=== PATIENT | male | born 1975 | race Asian ===

== ENCOUNTER 2021-05-09 11:34 | Inpatient (IN) ==
[2021-05-09 12:07] LABS: Basophils # (auto) 0.03 K/uL (0-0.2); Basophils % (auto) 0.2 %; Eosinophils # (auto) 0.01 K/uL (0-0.5); Eosinophils % (auto) 0.1 %; Hematocrit (blood only) 46.6 % (42-52); Hemoglobin 15.9 g/dL (14.0-18.0); Immature Granulocytes # (auto) 0.04 K/uL (0.00-0.02); Immature Granulocytes % (auto) 0.3 %; Lymphocytes # (auto) 1.37 K/uL (1.2-3.4); Lymphocytes % (auto) 9.4 %; Mean Corpuscular Hemoglobin 30.8 pg (25-34); Mean Corpuscular Hgb Conc 34.1 g/dL (32-36); Mean Corpuscular Volume 90.1 fL (80-100); Mean Platelet Volume 8.4 fL (7.4-10.4); Monocytes # (auto) 1.17 K/uL (0.11-0.59); Monocytes % (auto) 8.1 %; Neutrophils % (auto) 81.9 %; Platelet Count 476 K/uL (130-400); RDW Coefficient of Variation 13.2 % (11.5-14.5); RDW Standard Deviation 43.2 fL (36.4-46.3); Red Blood Count 5.17 M/uL (4.7-6.1); White Blood Count 14.52 K/uL (4.8-10.8)
[2021-05-09 12:27] LABS: Albumin Level 3.7 gm/dl (3.4-5.0); BUN Creatinine Ratio 18.5 (10-20); Calcium 10.2 mg/dl (8.5-10.1); Est GFR (African American) 120.5 ml/min; Potassium 3.3 mmol/L (3.5-5.1)
[2021-05-09 12:29] LABS: Albumin Globulin Ratio 0.6 (0.9-2); Bilirubin,Total 0.8 mg/dl (0.2-1); Globulin 5.9 gm/dl (2.5-4.0); Total Protein 9.6 gm/dl (6.4-8.2)
[2021-05-09] MEDS ORDERED: OPTIRAY 320 100ml IV ONE (13:40)
--- NOTE | 2021-05-09 13:50 | CT Scan Report ---
CT soft tissue neck w con CLINICAL HISTORY: Left-sided facial pain, jaw pain, dental pain . Recent extraction COMPARISON STUDY: No previous studies for comparison. CT DOSE: 268.32 mGy.cm TECHNIQUE: Standard CT of the Neck was performed with IV contrast. A dose lowering technique was ut ilized adhering to the principles of ALARA. Contrast Volume: Optiray 320, 95 ml FINDINGS: The patient is status post extraction of the posterior molar on the left. Lucency is seen w ithin the mandible at this site. Additionally, there is soft tissue swelling of the adjacent left beth e of the face and submandibular region. There is evidence for abnormal fluid collection in the subman dibular space with enhancing wall measuring 17 x 17 mm. These findings are characteristic of a small submanubrial abscess. Adjacent cellulitis is also present of the left-sided face. Additionally, the soft tissue swelling extends medially to the mandible with soft tissue swelling and debris seen within the vallecula and piriform sinus on the left. Follow-up CT following resolution o f the inflammatory process is recommended to completely exclude any other process at this site. Salivary glands: Parotid and submandibular salivary glands are within normal limits. The thyroid gland is also within normal limits. Lymph nodes: There are no pathologically enlarged lymph nodes. There is no evidence for soft tissue mass within the neck bilaterally. Airway: The cervical airway is widely patent. The epiglottis and aryepiglottic folds are normal bila terally. The vocal cords are symmetric bilaterally. Vascular structures: No gross vascular abnormalities are seen. Paranasal sinuses:The imaged paranasal sinuses are clear. Osseous structures: No acute osseous abnormalities are identified. IMPRESSION: 1. Lucency within the mandible on the left at the site of recent extraction with no cortical destruct ion seen. 2. However, there is a submandibular abscess present along with adjacent cellulitis of the left side of the face. 3. Additionally, soft tissue swelling extends medial with swelling and debris seen within the vallecu la and piriform sinus on the left. Follow-up is recommended as described. ACT 112: Positive. There are findings on this exam that require communication between the performing entity and the patient following Patient Test Result Information Act ([place] Act 112) guidelines. Electronically signed by: Gabe Spencer M.D. 05/09/2021 1:49 PM
[2021-05-09] MEDS ORDERED: dexAMETHasone**PF** 10 MG/ML VIAL IV ONE (14:10)
[2021-05-09] MEDS ORDERED: AMPICILLIN/SULBACTAM SOD 3,000 MG in 0.9 % SODIUM CHLORIDE 100 ML IV STA (14:10)
--- NOTE | 2021-05-09 14:30 | Emergency Department Note ---
History of Present Illness General Chief complaint: Facial Injury/Pain Stated complaint: INFECTION IN JAW,EXTREME PAIN FOR 1 MONTH Time Seen by Provider: 05/09/21 13:56 History of Present Illness Maximum Pain Intensity: 10 This 46-year-old male patient presents to the emergency department today via private vehicle at the recommendation of his strand forming machine operator for evaluation of left sided facial swelling, pain, and chills. Patient has been experiencing left- sided facial pain and swelling for about a month. 1 month ago, he was seen by his dentist and had left lower molar extraction and right upper molar extraction. The patient states since that time, he has been experiencing increased pain and swelling in the area. After the extraction, he had a root canal of the left lower molar due to the pain. He states this did not help and he was seen several times. He was finally referred to an strand forming machine operator who removed the filling which was placed. The patient states he was on clindamycin and dexamethasone, but despite these medications was not experiencing improvement. He was seen by his strand forming machine operator and referred to an oral surgeon, but has not been able to get an appointment. The patient states the pain and swelling are severe and he is having difficulty opening his mouth. He does report some swelling into the floor of his mouth difficulty keeping down food and fluids due to his symptoms. The patient reports chills. No documented fever. He is not currently on any medications. He rates his pain 10/10 and describes it as sharp and throbbing Allergies Allergy/AdvReac Type Severity Reaction Status Date / Time No Known Allergies Allergy Unverified 05/09/21 11:39 Past Med/Surg History Medical History No pertinent past medical history Social History Smoking Status: Former smoker Preferred Language: Kuwaiti Feels Safe at Home: Yes Review of Systems A total of 10 systems reviewed and were otherwise negative Physical Exam Vital Signs Vital Signs - 24 hr 05/09/21 11:39 05/09/21 15:42 05/09/21 17:18 Temperature 36.8 C Temperature Source Temporal Artery Scan Pulse Rate 115 H Pulse Rate [Right Finger] 108 H 92 H Pulse Rhythm Regular Pulse Strength Normal Respiratory Rate 18 16 16 Respiratory Effort / Characteristics Non-Labored Spontaneous Respiratory Depth Normal Respiratory Pattern Regular Blood Pressure 141/96 H Blood Pressure [Right Arm] 131/89 158/91 H Blood Pressure Mean 111 Blood Pressure Mean [Right Arm] 103 113 Blood Pressure Position Sitting Pulse Oximetry 97 98 96 Oxygen Delivery Method Room Air Room Air Room Air Sepsis Recent Fever Within 48 Hours Yes Sepsis New/Unexplained Change in Mental Status No Sepsis Action Taken by Nursing No Action Required VITALS: Vitals are noted on the nurse's note and reviewed by myself. Patient is tachycardic. He is afebrile at this time. GENERAL: This is a 46-year-old male, in no acute distress, nondiaphoretic, well-developed well-nourished. SKIN: The skin was without rashes, erythema, edema, or bruising. There is no tenting of the skin. Capillary refill less than 2 seconds. HEAD: Normocephalic atraumatic. EARS: External auditory canals clear, tympanic membranes pearly munoz without erythema or effusion bilaterally. EYES: Conjunctivae without injection, sclerae without icterus. MOUTH: + Trismus. Erythema and edema of the left side of the mandible, extending to the floor of the mouth on the left side, and edema of the buccal mucosa. No active discharge. Mucous membranes moist. Pharynx without erythema or exudate. Uvula midline. Airway patent. Tongue does not deviate. NECK: Supple without nuchal rigidity. No lymphadenopathy. No JVD. HEART: Regular rate and rhythm without murmurs gallops or rubs. LUNGS: Clear to auscultation bilaterally without wheezes, rales or rhonchi. No retractions or accessory muscle use. MUSCULOSKELETAL: No muscle atrophy, erythema, or edema noted. Full range of motion without joint tenderness in all extremities. No tenderness to palpation. Normal gait. Strength 5/5 throughout. NEURO: Patient was alert and oriented to person place and time. No focal sarina rological deficits. Course Course Due to high volume, high acuity in the emergency department in the setting of the COVID-19 pandemic, critical pathways initiated by nursing staff. IV access obtained, labs drawn. Based on the triage note, I did order a CT of the soft tissue neck to further evaluate the patient's symptoms. Labs reviewed by myself. Imaging performed reviewed by myself and radiologist as noted. The patient was seen and evaluated as above. I discussed the findings with the patient in triage due to unavailability of beds in the ED at this time. Pt. roomed and medicated with IV NSS, dexamethasone, Unasyn. I discussed the case with Dr. Maradiaga, maxillofacial surgeon plant controls specialist. He did see and evaluate the patient. Recommended admission to medicine and will consult/monitor symptoms, likely to OR when abscess becomes more drainable. I discussed the case with Dr. Rasmussen, [facility] Hospitalist physician. He did agree to see and evaluate the patient for admission. Administered Medications Discontinued Medications Dexamethasone Sodium Phosphate (DexamethasonePf 10 Mg/Ml Vial) 10 mg IV NOW ONE Stop: 05/09/21 14:11 Last Admin: 05/09/21 14:55 Dose: 10 mg Documented by: [id number] Ampicillin Sodium/Sulbactam Sodium 3,000 mg/ Sodium Chloride 108 mls @ 200 mls/hr IV NOW STA; Protocol Stop: 05/09/21 14:42 Last Infusion: 05/09/21 16:15 Dose: 0 mls/hr Documented by: [id number] Admin: 05/09/21 15:42 Dose: 200 mls/hr Documented by: [id number] Sodium Chloride (Nss 1000ml) 1,000 mls @ 999 mls/hr IV .Q1H1M ONE Stop: 05/09/21 15:48 Last Infusion: 05/09/21 15:42 Dose: 0 mls/hr Documented by: [id number] Admin: 05/09/21 14:55 Dose: 999 mls/hr Documented by: [id number] Ioversol (Optiray 320 100ml) 95 ml IV ONCE ONE Stop: 05/09/21 13:41 Last Admin: 05/09/21 13:32 Dose: 95 ml Documented by: [id number] Medical Decision Making Differential Diagnosis Dental caries, dental abscess, Ludwigs angina, Vincent angina, dental fracture, facial cellulitis, parotitis, osteomyelitis, sinus infection, peritonsillar abscess. Medical Records Attestation: I reviewed the patient's medical records. Home Medications Current Medication List: was personally reviewed by me Laboratory Data Attestation: I reviewed the patient's lab results. Leukocytosis of 14,000. No anemia thrombocytopenia. Renal, hepatic function and electrolytes without significant abnormality. Result diagrams: 05/09/21 11:58 05/09/21 11:58 Lab Results 05/09/21 05/09/21 05/09/21 Range/Units 11:58 11:58 17:20 WBC 14.52 H (4.8-10.8) K/uL RBC 5.17 (4.7-6.1) M/uL Hgb 15.9 (14.0-18.0) g/dL Hct 46.6 (42-52) % MCV 90.1 (80-100) fL MCH 30.8 (25-34) pg MCHC 34.1 (32-36) g/dL RDW Std Deviation 43.2 (36.4-46.3) fL RDW Coeff of Maite 13.2 (11.5-14.5) % Plt Count 476 H (130-400) K/uL MPV 8.4 (7.4-10.4) fL Immature Gran % (Auto) 0.3 % Neut % (Auto) 81.9 % Lymph % (Auto) 9.4 % [place] % (Auto) 8.1 % Eos % (Auto) 0.1 % Baso % (Auto) 0.2 % Neut # (Auto) 11.90 H (1.4-6.5) K/uL Lymph # (Auto) 1.37 (1.2-3.4) K/uL [place] # (Auto) 1.17 H (0.11-0.59) K/uL Eos # (Auto) 0.01 (0-0.5) K/uL Baso # (Auto) 0.03 (0-0.2) K/uL Immature Gran # (Auto) 0.04 H (0.00-0.02) K/uL Sodium 136 (136-145) mmol/L Potassium 3.3 L (3.5-5.1) mmol/L Chloride 99 (98-107) mmol/L Carbon Dioxide 29 (21-32) mmol/L Anion Gap 8.0 (3-11) BUN 17 (7-18) mg/dl Creatinine 0.89 (0.6-1.4) mg/dl Est Cr Clr Drug Dosing 79.0 ml/min Est GFR ( Amer) 120.5 ml/min Est GFR (Non-Af Amer) 104.0 ml/min BUN/Creatinine Ratio 18.5 (10-20) Glucose 117 H (70-99) mg/dl Calcium 10.2 H (8.5-10.1) mg/dl Total Bilirubin 0.8 (0.2-1) mg/dl AST 9 L (15-37) U/L ALT 22 (12-78) Alkaline Phosphatase 107 (45-117) U/L Total Protein 9.6 H (6.4-8.2) gm/dl Albumin 3.7 (3.4-5.0) gm/dl Globulin 5.9 H (2.5-4.0) gm/dl Albumin/Globulin Ratio 0.6 L (0.9-2) SARS-CoV-2, RNA, NAAT NEGATIVE (NEGATIVE) Imaging Data Radiologist's Impression: Soft Tissue Neck CT 05/09/21 12:01 CT soft tissue neck w con CLINICAL HISTORY: Left-sided facial pain, jaw pain, dental pain . Recent extraction COMPARISON STUDY: No previous studies for comparison. CT DOSE: 268.32 mGy.cm TECHNIQUE: Standard CT of the Neck was performed with IV contrast. A dose lowering technique was utilized adhering to the principles of ALARA. Contrast Volume: Optiray 320, 95 ml FINDINGS: The patient is status post extraction of the posterior molar on the left. Lucency is seen within the mandible at this site. Additionally, there is soft tissue swelling of the adjacent left side of the face and submandibular region. There is evidence for abnormal fluid collection in the submandibular space with enhancing wall measuring 17 x 17 mm. These findings are characteristic of a small submanubrial abscess. Adjacent cellulitis is also present of the left-sided face. Additionally, the soft tissue swelling extends medially to the mandible with soft tissue swelling and debris seen within the vallecula and piriform sinus on the left. Follow-up CT following resolution of the inflammatory process is recommended to completely exclude any other process at this site. Salivary glands: Parotid and submandibular salivary glands are within normal limits. The thyroid gland is also within normal limits. Lymph nodes: There are no pathologically enlarged lymph nodes. There is no evidence for soft tissue mass within the neck bilaterally. Airway: The cervical airway is widely patent. The epiglottis and aryepiglottic folds are normal bilaterally. The vocal cords are symmetric bilaterally. Vascular structures: No gross vascular abnormalities are seen. Paranasal sinuses:The imaged paranasal sinuses are clear. Osseous structures: No acute osseous abnormalities are identified. IMPRESSION: 1. Lucency within the mandible on the left at the site of recent extraction with no cortical destruction seen. 2. However, there is a submandibular abscess present along with adjacent cellulitis of the left side of the face. 3. Additionally, soft tissue swelling extends medial with swelling and debris seen within the vallecula and piriform sinus on the left. Follow-up is recommended as described. ACT 112: Positive. There are findings on this exam that require communication between the performing entity and the patient following Patient Test Result Information Act ([place] Act 112) guidelines. Electronically signed by: Gabe Spencer M.D. 05/09/2021 1:49 PM Blood Pressure Blood Pressure Findings: Elevated blood pressure Blood Pressure Disposition: elevated BP felt to be situational MDM Narrative This 46 year old male patient presents to the ED today via private vehicle for evaluation of left sided facial pain and swelling which has been ongoing for about a month. Has had several dental procedures completed due to the symptoms. Swelling and pain worsened and he was referred to the ED from a "dental specialist" for IV antibiotics. He recently finished course of Clindamycin and dexamethasone. CT imaging performed due to patient's symptoms and concerning for left mandibular abscess, cellulitis of the face, and examination is concerning for trismus, swelling into the floor of the mouth, and severe tenderness to palpation. Pt. medicated with IV antibiotics and steroids and hydrated with IV fluids. He was seen by Dr. Maradiaga, plant controls specialist maxillofacial surgeon who recommended admission, IV antibiotics, steroids, and will follow the case and likely take the patient to the OR for I&D in 1-2 days. Please see hospitalist and maxillofacial surgery dictation regarding ongoing management and care of this patient. The chart was completed utilizing [employer] Speech voice recognition software. Grammatical errors, random word insertions, pronoun errors, and incomplete sentences are an occasional consequence of this system due to software limitations, ambient noise, and hardware issues. Any formal questions or concerns about the content, text, or information contained within the body of this dictation should be directly addressed to the provider for clarification. Impression & Plan Cellulitis and abscess of face, Trismus, Submandibular abscess Discharge Plan Visit Data Chief Complaint: Facial Injury/Pain Stated Complaint: INFECTION IN JAW,EXTREME PAIN FOR 1 MONTH ED Provider: Celestino Landeros ED Midlevel Provider: Chichi Edwards Discharge Problem: Cellulitis and abscess of face, Trismus, Submandibular abscess Patient Disposition: Admitted As Inpatient Forms Stand Alone Forms: [facility] Referrals Referrals: PCP,NO [Physician] -
[2021-05-09] MEDS ORDERED: SODIUM CHLORIDE 0.9% 1000ML 1,000 ML IV ONE (14:48)
--- NOTE | 2021-05-09 16:52 | Oral/Maxillofacial Consult ---
Date of Consultation May 09, 2021 Assessment & Plan (1) Cellulitis and abscess of face: (2) Submandibular abscess: (3) Infection of tooth socket: History of Present Illness History of Present Illness Oral Maxillofacial Surgery Exam Present Complaint: I have pain/swelling/drainage from my infected wisdom tooth socket left side # 17 tooth 17 extracted on ago by Dr Arthur--had a lot of pain was treated for dry socket-pain contnued. 19 endo started on Apr 3-continued pain. Now hard swelling with trismus, left submandibular area, can only open 1 cm Symptoms have been ongoing for a while over 1 month w/o any improvement. 2 rounds of antibiotics w/o any improvement. Oral Exam: Finding--Trismus, swelling of # 17 area, tender gingival tissue. Over all dental condition is healthy. Infected 18-19 area, abnormal healing # 17 area, pain on pressure # 18,19. Imaging: FINDINGS: The patient is status post extraction of the posterior molar on the left. Lucency is seen within the mandible at this site. Additionally, there is soft tissue swelling of the adjacent left side of the face and submandibular region. There is evidence for abnormal fluid collection in the submandibular space with enhancing wall measuring 17 x 17 mm. These findings are characteristic of a small submandibular abscess. Adjacent cellulitis is also present of the left-sided face. Additionally, the soft tissue swelling extends medially to the mandible with soft tissue swelling and debris seen within the vallecula and piriform sinus on the left. Follow-up CT following resolution of the inflammatory process is recommended to completely exclude any other process at this site. Salivary glands: Parotid and submandibular salivary glands are within normal limits. The thyroid gland is also within normal limits. Lymph nodes: There are no pathologically enlarged lymph nodes. There is no evidence for soft tissue mass within the neck bilaterally. Airway: The cervical airway is widely patent. The epiglottis and aryepiglottic folds are normal bilaterally. The vocal cords are symmetric bilaterally. Vascular structures: No gross vascular abnormalities are seen. Paranasal sinuses:The imaged paranasal sinuses are clear. Osseous structures: No acute osseous abnormalities are identified. IMPRESSION: 1. Lucency within the mandible on the left at the site of recent extraction with no cortical destruction seen. 2. However, there is a submandibular abscess present along with adjacent cellulitis of the left side of the face. 3. Additionally, soft tissue swelling extends medial with swelling and debris seen within the vallecula and piriform sinus on the left. Follow-up is recommended as described. Soft tissue: tongue, hard/soft palate are all WNL. Slight swelling left posterior pharyngeal area, Muco buccal fold, floor of the mouth left side, no pathology or abnormal findings noted anywhere else in the mouth. Oral Care: Overall oral care is good Occlusion: Class I TMJ exam: very limited opening due to present infection. Periodontal exam: Healthy gingival tissue without evidence of periodontal pathology. Head/Neck exam: Neck is supple, FROM, Not Able to extend or flex neck w/o difficulty due to left side swelling. no airway issues,no swallowing issues. Treatment Plan: Admission to medical service IV antibiotics Heat compresses to left side of the face and jaw. Control pain Liquid diet, IV therapy. Allow localization of the infection then I and D once localized 24-26 hours. Set up with general anesthesia in hospital OR due to complexity of the procedure once the infection points. I reviewed the treatment plan and consent with the patient. Understanding was expressed. Time was given for questions regarding the future I and D, risks and post op care. I will call Dr Arthur office in the AM Discussed alternative to treatment--procedure as planned, Do not do surgery Risks discussed: Bleeding,Pain,swelling,infection, delayed healing, nerve injury to face,lips,tongue,chin area which could be permanent (rare).continued infection. Extraoral I and D TMJ, jaw stiffness, change in bite (rare), ear pain (referred). Sinus problems like fistula or infection. I will see patient tomorrow and decide when the I and D will be planned. May have diet as tolerated. Admission to medical service I will follow and plan I and D when appropriate. Allergies Allergy/AdvReac Type Severity Reaction Status Date / Time No Known Allergies Allergy Unverified 05/09/21 11:39 Home Medications Medication Instructions Recorded Confirmed Type aripiprazole 5 mg tablet 5 mg PO HS 05/09/21 05/09/21 History bupropion HCl 100 mg tablet,12 hr 100 mg PO QAM 05/09/21 05/09/21 History sustained-release sertraline 100 mg tablet 200 mg PO HS 05/09/21 05/09/21 History Patient History Medical History (Updated 05/10/21 @ 17:22 by Jose Maradiaga DMD) History of gastric ulcer required surgical intervention PTSD (post-traumatic stress disorder) Surgical History (Updated 05/10/21 @ 16:30 by Anshul Concepcion MD) Hx of esophagogastroduodenoscopy Social History Smoking Status: Current some day smoker Hx Alcohol Use: No Hx Substance Use: No Preferred Language: Lithuanian Communication Ability: Effective Mask Layout Designer Required: No Beliefs That Will Affect Care: None Current Living Situation: Alone Other Information That Helps Us Care for You: No Feels Safe at Home: Yes Safety Concerns: Feels Safe At This Time Assistive Devices: None Results & Data ([facility]) Vital Signs (Past 12 Hours) Vital Signs Temp Pulse Pulse Resp BP BP Pulse Ox 05/09/21 15:42 108 H 16 131/89 98 05/09/21 11:39 36.8 C 115 H 18 141/96 H 97 PG Care Time/CCT Total # of Minutes Spent Total Time Spent with Patient: Total time spent is greater than 50% in coordination of care (as documented) at patient's floor/unit and/or counseling patient: Coding Level of Care Code 84733 Office/OBS Consult Lvl 3 Diagnoses Cellulitis and abscess of face L03.211; L02.01 Submandibular abscess K12.2 Infection of tooth socket M27.3
--- NOTE | 2021-05-09 17:53 | History & Physical Report ---
Date of Service May 09, 2021 Assessment & Plan (1) Submandibular abscess: Plan: Unasyn 3g IV Q6H Decadron 4mg Q6H Warm compress Acetaminophen 1st line, Toradol 2nd line, Morphine 3rd line for pain Appreciate oromaxillofacial consult (2) PTSD (post-traumatic stress disorder): Plan: Continue his usual medications regimen with aripiprazole, bupropion and sertraline Plan: VTE Prophylaxis - low risk Diet - Clear liquids Disposition - admit to med/surg Admission and Anticipated Discharge Date Admission Date: May 08, 2021 History of Present Illness Chief Complaint: Submandibular abscess Primary Care Provider: Kayleigh Feldman Kiki Cuadra is a 46 year old male who presents to the ER with left sided facial swelling, pain, fever and chills. He reports symptoms started after left lower wisdom tooth extraction on April 20. He has had pain following this procedure without any explanation from his dentist to what was causing his pain. He was initially prescribed a course of penicillin on April 26 for possible infection. This was followed up by a root canal procedure on May 01 with a course of ciprofloxacin. After this procedure he started to have more pain and submandibular swelling with fever and chills. He was referred to another specialist and planned to going to a oromaxillofacial surgeon but has been unable to get an urgent appointment due to the holidays. In the ER CT confirmed the presence of a submandibular abscess. Dr Maradiaga has seen the patient and recommended IV antibiotics and steroids currently. Pending clinical course surgery to be decided. He was referred to medicine for admission and ongoing management of this submandibular abscess. The patient notes no recurrent infections. Allergies Allergy/AdvReac Type Severity Reaction Status Date / Time No Known Allergies Allergy Unverified 05/09/21 11:39 Home Medications Medication Instructions Recorded Confirmed Type aripiprazole 5 mg tablet 5 mg PO HS 05/09/21 05/09/21 History bupropion HCl 100 mg tablet,12 hr 100 mg PO QAM 05/09/21 05/09/21 History sustained-release sertraline 100 mg tablet 200 mg PO HS 05/09/21 05/09/21 History Past Med/Surg History Medical History (Updated 05/09/21 @ 19:12 by Chang Rasmussen MD) History of gastric ulcer required surgical intervention No pertinent past medical history Social History Smoking Status: Current some day smoker Hx Alcohol Use: No Hx Substance Use: No Preferred Language: Belarusian Communication Ability: Effective 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 Beliefs That Will Affect Care: None Current Living Situation: Alone Other Information That Helps Us Care for You: No Feels Safe at Home: Yes Safety Concerns: Feels Safe At This Time Assistive Devices: Glasses Review of Systems Review of Systems: All systems reviewed & are unremarkable except as noted in HPI & below Physical Exam Constitutional: WD/WN, vitals as above Eyes: PERRL, conjunctivae normal, anicteric sclerae Neck: + submandibular swelling (left) Respiratory: normal respiratory effort, lungs clear to auscultation Cardiovascular: RRR, no murmur, no edema Gastrointestinal (Abdomen): normal bowel sounds, soft, nontender, no hepatosplenomegaly Musculoskeletal: no cyanosis or clubbing, extremities motor strength 5/5 Skin: no rashes, warm and dry Neurologic: moves all extremities and awake; not confused Psychiatric: A+Ox3, euthymic affect Results & Data Results & Data ([facility]) Vital Signs (Past 12 Hours) Vital Signs Temp Pulse Pulse Resp BP BP Pulse Ox 05/09/21 17:18 92 H 16 158/91 H 96 05/09/21 15:42 108 H 16 131/89 98 05/09/21 11:39 36.8 C 115 H 18 141/96 H 97 Laboratory Results Abnormal lab results 05/09/21 05/09/21 Range/Units 11:58 11:58 WBC 14.52 H (4.8-10.8) K/uL Plt Count 476 H (130-400) K/uL Neut # (Auto) 11.90 H (1.4-6.5) K/uL [place] # (Auto) 1.17 H (0.11-0.59) K/uL Immature Gran # (Auto) 0.04 H (0.00-0.02) K/uL Potassium 3.3 L (3.5-5.1) mmol/L Glucose 117 H (70-99) mg/dl Calcium 10.2 H (8.5-10.1) mg/dl AST 9 L (15-37) U/L Total Protein 9.6 H (6.4-8.2) gm/dl Globulin 5.9 H (2.5-4.0) gm/dl Albumin/Globulin Ratio 0.6 L (0.9-2) Diagnostic Findings CT soft tissue neck w con CLINICAL HISTORY: Left-sided facial pain, jaw pain, dental pain . Recent extraction COMPARISON STUDY: No previous studies for comparison. CT DOSE: 268.32 mGy.cm TECHNIQUE: Standard CT of the Neck was performed with IV contrast. A dose lowering technique was utilized adhering to the principles of ALARA. Contrast Volume: Optiray 320, 95 ml FINDINGS: The patient is status post extraction of the posterior molar on the left. Lucency is seen within the mandible at this site. Additionally, there is soft tissue swelling of the adjacent left side of the face and submandibular region. There is evidence for abnormal fluid collection in the submandibular space with enhancing wall measuring 17 x 17 mm. These findings are characteristic of a small submanubrial abscess. Adjacent cellulitis is also present of the left-sided face. Additionally, the soft tissue swelling extends medially to the mandible with soft tissue swelling and debris seen within the vallecula and piriform sinus on the left. Follow-up CT following resolution of the inflammatory process is recommended to completely exclude any other process at this site. Salivary glands: Parotid and submandibular salivary glands are within normal limits. The thyroid gland is also within normal limits. Lymph nodes: There are no pathologically enlarged lymph nodes. There is no evidence for soft tissue mass within the neck bilaterally. Airway: The cervical airway is widely patent. The epiglottis and aryepiglottic folds are normal bilaterally. The vocal cords are symmetric bilaterally. Vascular structures: No gross vascular abnormalities are seen. Paranasal sinuses:The imaged paranasal sinuses are clear. Osseous structures: No acute osseous abnormalities are identified. IMPRESSION: 1. Lucency within the mandible on the left at the site of recent extraction with no cortical destruction seen. 2. However, there is a submandibular abscess present along with adjacent cellulitis of the left side of the face. 3. Additionally, soft tissue swelling extends medial with swelling and debris seen within the vallecula and piriform sinus on the left. Follow-up is recommended as described. Medications Administered ER Medications Given: NSS 1L bolus Dexamethasone 10mg IV Unasyn 3000mg IV Code Status & VTE Plan VTE Prophylaxis Plan VTE Prophylaxis will be ordered: No PG Care Time/CCT Total # of Minutes Spent Total Time Spent with Patient: Total time spent is greater than 50% in coordination of care (as documented) at patient's floor/unit and/or counseling patient: Coding Level of Care Code 81377 Initial Inpt Care Lvl 2 Diagnoses Submandibular abscess K12.2 PTSD (post-traumatic stress disorder) F43.10
[2021-05-09] MEDS ORDERED: AMPICILLIN/SULBACTAM SOD 3,000 MG in 0.9 % SODIUM CHLORIDE 100 ML IV SCH (18:00)
[2021-05-09] MEDS ORDERED: ACETAMINOPHEN 1,000 MG/100 ML VIAL IV PRN (19:23)
[2021-05-09] MEDS ORDERED: ONDANSETRON INJ 2 MG/ML 2 ML VIAL IV PRN (19:23)
[2021-05-09] MEDS: MoRPHine SULFATE 4 MG/ML 1 ML CARP\\VIAL IV PRN (20:05)
[2021-05-09] MEDS: LACTATED RINGER'S 1,000 ML IV SCH (20:17)
[2021-05-09] MEDS: AMPICILLIN/SULBACTAM SOD 3,000 MG in 0.9 % SODIUM CHLORIDE 100 ML IV SCH (20:37)
[2021-05-09] MEDS: ARIPiprazole 5 MG TAB PO SCH (21:53)
[2021-05-09] MEDS: SERTRALINE HCL 100 MG TABLET PO SCH (21:53)
[2021-05-10] MEDS: MoRPHine SULFATE 4 MG/ML 1 ML CARP\\VIAL IV PRN (00:05)
[2021-05-10] MEDS: AMPICILLIN/SULBACTAM SOD 3,000 MG in 0.9 % SODIUM CHLORIDE 100 ML IV SCH ×4 (01:59→20:18)
[2021-05-10] MEDS: KETOROLAC TROMETHAMINE 15 MG/ML VIAL IV PRN ×3 (03:59→21:07)
[2021-05-10 05:47] LABS: Basophils # (auto) 0.02 K/uL (0-0.2); Basophils % (auto) 0.1 %; Eosinophils # (auto) 0.01 K/uL (0-0.5); Eosinophils % (auto) 0.1 %; Hematocrit (blood only) 39.1 % (42-52); Hemoglobin 13.5 g/dL (14.0-18.0); Immature Granulocytes # (auto) 0.05 K/uL (0.00-0.02); Immature Granulocytes % (auto) 0.4 %; Lymphocytes # (auto) 1.69 K/uL (1.2-3.4); Lymphocytes % (auto) 12.1 %; Mean Corpuscular Hemoglobin 30.8 pg (25-34); Mean Corpuscular Hgb Conc 34.5 g/dL (32-36); Mean Corpuscular Volume 89.3 fL (80-100); Mean Platelet Volume 8.5 fL (7.4-10.4); Monocytes # (auto) 1.31 K/uL (0.11-0.59); Monocytes % (auto) 9.4 %; Neutrophils # (auto) 10.83 K/uL (1.4-6.5); Neutrophils % (auto) 77.9 %; Platelet Count 490 K/uL (130-400); RDW Coefficient of Variation 13.2 % (11.5-14.5); Red Blood Count 4.38 M/uL (4.7-6.1); White Blood Count 13.91 K/uL (4.8-10.8)
[2021-05-10] MEDS: LACTATED RINGER'S 1,000 ML IV SCH ×3 (05:48→19:58)
[2021-05-10 06:09] LABS: BUN Creatinine Ratio 20.1 (10-20); Calcium 9.2 mg/dl (8.5-10.1); Est GFR (African American) 132.3 ml/min; Est GFR (Non-African American) 114.1 ml/min; Potassium 3.9 mmol/L (3.5-5.1)
[2021-05-10] MEDS: buPROPion SR 100 MG TABCR PO SCH (10:02)
[2021-05-10] MEDS ORDERED: DEXAMETHASONE SOD INJ 4 MG/ML VIAL ONE (11:18)
[2021-05-10] MEDS ORDERED: dexAMETHasone 4 MG in SYRINGE 0 ML IV SCH (12:00)
[2021-05-10] MEDS ORDERED: EPINEPHrine ADULT AUTO-INJECT 0.3 MG SYR IM ONE (13:10)
--- NOTE | 2021-05-10 16:30 | Anesthesiology Consultation ---
Date of Service May 10, 2021 Assessment & Plan (1) Encounter for pre-operative examination: Chart Review Chart Review: Acceptable Risk for Surgery History Surgery Operation Date: 05/11/21 09:15 Proposed Procedures p Left facial Incision and Drainage - Jose Maradiaga DMD s Extraction #28 - Jose Bassem HirenSKYLAR Height/Weight Height: 5 ft 10 in Weight: 52.7 kg Allergies Allergy/AdvReac Type Severity Reaction Status Date / Time No Known Allergies Allergy Unverified 05/09/21 11:39 Medications Home Medications Medication Instructions Recorded Confirmed Last Taken aripiprazole 5 mg tablet 5 mg PO HS 05/09/21 05/09/21 05/08/21 bupropion HCl 100 mg tablet,12 hr 100 mg PO QAM 05/09/21 05/09/21 05/09/21 sustained-release sertraline 100 mg tablet 200 mg PO HS 05/09/21 05/09/21 05/08/21 Active Medications Generic Name Dose Route Start Last Admin Trade Name Freq PRN Reason Stop Dose Admin Aripiprazole 5 mg 05/09/21 21:00 05/09/21 21:53 Aripiprazole 5 Mg Tab PO 06/08/21 20:59 5 mg HS BER[place] Administration Bupropion HCl 100 mg 05/10/21 09:00 05/10/21 10:02 Bupropion Sr 100 Mg Tabcr PO 06/09/21 08:59 100 mg QAM [place] Administration Dexamethasone 4 mg/ Syringe 1 mls @ 1 mls/min 05/10/21 12:00 05/10/21 11:27 IV 06/09/21 11:59 1 mls/min Q6H [place] Administration Ampicillin Sodium/Sulbactam 108 mls @ 200 mls/hr 05/09/21 20:00 05/10/21 15:06 Sodium 3,000 mg/ Sodium IV 05/19/21 19:59 Infused Chloride Q6H [place] Infusion Protocol Lactated Ringer's 1,000 mls @ 125 mls/hr 05/09/21 19:23 05/10/21 11:27 Lr IV 06/08/21 19:22 125 mls/hr .Q8H [place] Administration Ketorolac Tromethamine 15 mg 05/09/21 19:23 05/10/21 10:01 Ketorolac Tromethamine 15 Mg/Ml Vial IV 05/14/21 19:22 15 mg Q6H PRN Administration Pain Morphine Sulfate 4 mg 05/09/21 19:23 05/10/21 00:05 Morphine Sulfate 4 Mg/Ml 1 Ml Carp\Vial IV 05/23/21 19:22 4 mg Q4H PRN Administration Pain Ondansetron HCl 4 mg 05/09/21 19:23 05/09/21 20:05 Ondansetron Inj 2 Mg/Ml 2 Ml Vial IV 06/08/21 19:22 4 mg Q6H PRN Administration Nausea Sertraline HCl 200 mg 05/09/21 21:00 05/09/21 21:53 Sertraline Hcl 100 Mg Tablet PO 06/08/21 20:59 200 mg HS [place] Administration Past Medical History Medical History (Updated 05/10/21 @ 16:30 by Anshul Concepcion MD) History of gastric ulcer required surgical intervention PTSD (post-traumatic stress disorder) Past Surgical History Surgical History (Updated 05/10/21 @ 16:30 by Anshul Concepcion MD) Hx of esophagogastroduodenoscopy Social History Smoking Status: Current some day smoker Hx Alcohol Use: No Hx Substance Use: No Physical Exam Vital Signs Last Vital Signs Temp 36.7 C 05/10/21 07:13 Pulse 83 05/10/21 07:13 Resp 16 05/10/21 07:13 BP 121/80 05/10/21 07:13 Pulse Ox 97 05/10/21 07:13 Testing Laboratory Results 05/10/21 05:13 05/10/21 05:13
--- NOTE | 2021-05-10 17:11 | Hospitalist Progress Note ---
Date of Service May 10, 2021 Assessment & Plan (1) Submandibular abscess: Plan: CT face on 05/09/21 showed submandibular abscess present along with adjacent cellulitis of the left side of the face. - Continue Unasyn - Warm compress - Acetaminophen 1st line, Toradol 2nd line, Morphine 3rd line for pain - Appreciate oromaxillofacial consult -> Plan for I&D tomorrow AM. (2) PTSD (post-traumatic stress disorder): Plan: - Continue his usual medications regimen with aripiprazole, bupropion, and sertraline. (3) DVT prophylaxis: Plan: SCDs - Low DVT risk per admission calculator Admission and Anticipated Discharge Date Admission Date: May 09, 2021 Subjective Doing well today. He feels the pain is improved. He can open his jaw more easily as well. Reports no fevers/chills, chest pain, shortness of breath, abdominal pain, nausea, or vomiting. Physical Exam Constitutional: WD/WN, vitals as above Eyes: EOM intact bilaterally; no conjunctival abnormality ENMT: external ear and nose normal, oropharynx normal Mouth: + oral mucosal abnormality and + gingival abnormality (Left rear tooth) Neck: trachea midline, no thyromegaly normal visual inspection Respiratory: normal respiratory effort, lungs clear to auscultation no respiratory distress Cardiovascular: RRR, no murmur, no edema Gastrointestinal (Abdomen): Inspection/Auscultation: abdomen normal to inspection; abdomen not distended Musculoskeletal: no cyanosis or clubbing, extremities motor strength 5/5 Skin: no rashes, warm and dry Neurologic: moves all extremities and awake Psychiatric: Orientation: alert, oriented to person and cooperative Results & Data Results & Data ([facility]) Vital Signs (Past 12 Hours) Vital Signs Temp Pulse Resp BP Pulse Ox 05/10/21 07:13 36.7 C 83 16 121/80 97 PG Care Time/CCT Total # of Minutes Spent Total Time Spent with Patient: Total time spent is greater than 50% in coordination of care (as documented) at patient's floor/unit and/or counseling patient: Coding Level of Care Code 89112 Subseq Hosp Care Lvl 2 Diagnoses Submandibular abscess K12.2 PTSD (post-traumatic stress disorder) F43.10 DVT prophylaxis Z29.9
--- NOTE | 2021-05-10 17:29 | Oral/Maxillofacial Progress Nt ---
Date of Service May 10, 2021 Assessment & Plan Admission and Anticipated Discharge Date Admission Date: May 09, 2021 Subjective Follow up note 05-10-21 He is doing much better today. Swelling localized to the subperiosteal area and the wisdom tooth socket. The lower teeth 18 and 19 are very loose and periodontally involved. My plan is to take him to the OR on , clean out the infected extraction site, drain any residule infection, extraction of any infected teeth. Once this is completed I feel we can send him home after the procedure . I will order oral antibiotics and arrange for follow up with my office. Please keep him NPO tonight. Consent signed reviewed the surgery Treatment Plan: Set up with general anesthesia in hospital due to complexity of the procedure I reviewed the treatment plan and consent with the patient. Understanding was expressed. Time was given for questions regarding the surgery, risks and post op care. Risks discussed: Bleeding,Pain,swelling,infection, dry socket, delayed healing, nerve injury to face,lips,tongue,chin area which could be permanent (rare). TMJ, jaw stiffness, change in bite (rare), ear pain (referred). Need to leave a small root fragment in place to avoid injury to nerve or sinus. Relationship of wisdom socket to nerve and risk of jaw fracture. Home care reviewed: tooth brushing, rinsing, follow up care with Dr Maradiaga. diet=[id number] dental. Discussed activity level, driving/work while on Rx pain Meds. Results & Data ([facility]) Vital Signs (Past 12 Hours) Vital Signs Temp Pulse Resp BP Pulse Ox 05/10/21 07:13 36.7 C 83 16 121/80 97 PG Care Time/CCT Total # of Minutes Spent Total Time Spent with Patient: Total time spent is greater than 50% in coordination of care (as documented) at patient's floor/unit and/or counseling patient: Coding Level of Care Code 15821 Subseq Hosp Care Lvl 1
[2021-05-10] MEDS: SERTRALINE HCL 100 MG TABLET PO SCH (20:18)
[2021-05-10] MEDS: ARIPiprazole 5 MG TAB PO SCH (20:18)
[2021-05-11] MEDS: AMPICILLIN/SULBACTAM SOD 3,000 MG in 0.9 % SODIUM CHLORIDE 100 ML IV SCH ×3 (02:23→12:57)
[2021-05-11] MEDS: LACTATED RINGER'S 1,000 ML IV SCH (03:10)
[2021-05-11] MEDS: MoRPHine SULFATE 4 MG/ML 1 ML CARP\\VIAL IV PRN (03:10)
[2021-05-11] MEDS: KETOROLAC TROMETHAMINE 15 MG/ML VIAL IV PRN (07:40)
[2021-05-11] MEDS: buPROPion SR 100 MG TABCR PO SCH (07:41)
[2021-05-11] MEDS ORDERED: ATROPINE SULFATE 0.1 MG/ML 10ML SYR IV PRN (09:23)
[2021-05-11] MEDS ORDERED: ONDANSETRON INJ 2 MG/ML 2 ML VIAL IV PRN (09:23)
[2021-05-11] MEDS ORDERED: ePHEDrine sulfate 50 MG/ML AMP IV PRN (09:23)
[2021-05-11] MEDS ORDERED: fentaNYL citrate 100 MCG/2 ML VIAL IV PRN (09:23)
[2021-05-11] MEDS ORDERED: LACTATED RINGER'S 1,000 ML IV SCH (09:30)
--- NOTE | 2021-05-11 09:50 | History & Physical Bridge Note ---
Date of Service May 11, 2021 History & Physical Bridge Note I have examined the patient, reviewed the History & Physical and in the interval since the performance of the History & Physical I have noted the following changes of clinical significance: no changes noted COVID neg Plan Debridement of the oral infection and extraction of the # 18 tooth. Plan is for Discharge today
[2021-05-11] MEDS ORDERED: NEOSTIGMINE METHYLSULFATE 1 MG/ML 10ML VIAL ONE (10:07)
[2021-05-11] MEDS ORDERED: ONDANSETRON INJ 2 MG/ML 2 ML VIAL ONE (10:07)
[2021-05-11] MEDS ORDERED: DEXAMETHASONE SOD INJ 4 MG/ML VIAL ONE (10:07)
[2021-05-11] MEDS ORDERED: SUCCINYLCHOLINE CHLORIDE 20 MG/ML 10 ML VIAL IV ONE (10:07)
[2021-05-11] MEDS ORDERED: MIDAZOLAM HCL 1 MG/ML 2ML VIAL ONE (10:07)
[2021-05-11] MEDS ORDERED: ROCURONIUM BROMIDE 10 MG/ML 5 ML VIAL IV ONE (10:07)
[2021-05-11] MEDS ORDERED: LIDOCAINE 2% 2 ML VIAL/AMP(20MG/ML) INFIL ONE (10:07)
[2021-05-11] MEDS ORDERED: GLYCOPYRROLATE 0.2 MG/ML VIAL ONE (10:07)
[2021-05-11] MEDS ORDERED: PROPOFOL IV EMULSION 10 MG/ML 20 ML VIAL IV ONE (10:07)
[2021-05-11] MEDS ORDERED: fentaNYL citrate 100 MCG/2 ML VIAL ONE ×2 (10:08→10:53)
[2021-05-11] MEDS ORDERED: BUPIVACAINE/EPINEPHRINE 0.5% 1:200,000 1.8 ML CARP ONE (10:12)
[2021-05-11] MEDS ORDERED: CHLORHEXIDINE GLUCONATE 0.12% 480 ML ONE (10:26)
--- NOTE | 2021-05-11 12:10 | Operative Report ---
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 K12.2 L03.211 CPT 62620 Debridement of necrotic teeth,bone and soft tissue left mandible M27.2 CPT 46503 I identified the patient and participated in the time-out.: Yes Procedure Operation Date: 05/11/21 09:15 Actual Procedures p Left facial Incision and Drainage of mandibular space and marrow space abscess suspect osteomyelitics - Jose Maradiaga DMD s Debridement of very loose teeth, necrotic bone Extraction #18,19(Left) - Jose Maradiaga DMD Surgeon Jose Maradiaga DMD Title Clerk none Estimated Blood Loss 10 Findings Consistent with Post-Op Diagnosis gross infection and necrotic bone lower left side possible osteomyelitis. 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 A time out was take for patient ID, antibiotics, equipment and position veri fication once all agreed the procedure began. Local anesthesia was given into each area using Marcaine with a vasoconstrictor ( 1.8 ml per site). A throat pack was placed after the oral cavity was irrigated with saline. Once a surgical level of anesthesia was obtained and the local anesthesia was given time for the blocks the surgery was started. I turned my attention to the lower left side Incision and drainage of abscess left floor of the mouth and marrow vascular space associated with teeth 18,19 The full thick muco-periosteal flap was made on the external oblique ridge from the site of the prior extraction site to avoid the lingual nerve and amount the extremely loose # 18 and 19. Tooth 20 was also somewhat loose but I will follow this tooth for now. The area was grossly infected as was the # 17 socket, the teeth were abnormally loose. # 17 was removed by his dentist on --ongoing pain, infection and swelling. Pus extruded from the sockets and marrow spaces. I extended the flap posterior to drain the mandibular space infection, much pus drained from this space and was the etiology of the trismus. The flap was reflected to expose the necrotic bone surrounding 17-19 area. The drill with a round bur was used to remove bone to allow access into the marrow space lateral to the cortical plate.The lingual plate was protected. The loose 18 and 19 tooth was removed with a dental forceps, the nerve was intact. The bone surrounding 18 and 19 was loose and necrotic. Pus extruded from the lateral marrow space. All the infected hard and soft tissue was curetted out. bleeding was controlled with a Surgi asha dressing. Once the bleeding was controlled,the bone was trimmed, smoothed and the flap was closed with a 2-0 chromic sutures. The tissue was very friable from the infection process. There was a large defect from # 17 to # 19 area. The teeth were so loose and the interseptal bone was also loose. Clinically this appears to be an osteomyelitis of the marrow space of the lower left posterior area. When all the teeth and loose bone was removed I inspected the sites to insure all bleeding was controlled. I removed the throat pack and suctioned the throat. Bilateral gauze pressure dressings were placed. All instrument and sponge count was correct. the patient was allowed to awake from the anesthesia. Once full awake the anesthesia tube was removed and the patient was taken to the recovery room with all vital sign stable. The patient tolerated the surgery very well. I will follow the patient in my office, Rx and instructions will be given upon discharge. I attest to the content of the Intraoperative Record and any orders documented therein. Any exceptions are noted below.
--- NOTE | 2021-05-11 12:25 | Anesthesiology Progress Note ---
Date of Service May 11, 2021 Anesthesia Post Procedure Vital Signs Vital Signs: Temp Pulse Pulse Resp BP Pulse Ox 05/11/21 12:20 97.9 F 91 H 18 140/90 97 05/11/21 12:10 81 12 131/89 97 05/11/21 12:00 95 H 20 123/91 99 05/11/21 11:52 97.7 F 102 H 18 117/89 100 05/11/21 09:14 98.8 F 97 H 18 149/88 H 98 05/11/21 07:37 98.4 F 95 H 16 146/95 H 97 05/10/21 23:10 98.2 F 78 16 124/75 98 05/10/21 17:20 98.1 F 85 18 145/89 H 98 Pain Intensity Teeth: Pain Intensity: 2 Left Jaw: Pain Intensity: 7 Transfer of Care Handoff Completed per policy Notes Mental Status: alert / awake / arousable and participated in evaluation Patient Amnestic to Procedure: Yes Nausea / Vomiting: adequately controlled Pain: adequately controlled Airway Patency, RR, SpO2: stable & adequate BP & HR: stable & adequate Hydration State: stable & adequate Anesthetic Complications: no major complications apparent and Pt Satisfied with anesthetic care
--- NOTE | 2021-05-12 19:42 | Discharge Summary ---
Date of Service May 12, 2021 Coding I and D of left hat steamer space abscess K12.2 L03.211 CPT 80473 Debridement of necrotic teeth,bone and soft tissue left mandible M27.2 CPT 57168 Patient was taken to the OR on May 11. Procedure: I and D of left hat steamer space abscess Debridement of necrotic teeth,bone and soft tissue left mandible He tolerated the procedure very well I suspect an acute osteomyelitics of the left mandible. I Rx Augmentin and Peridex I will await for the results of the bone biopsy to determine if long-term antibiotics will be needed if the bone is necrotic. I will follow Mr. Cuadra in my office. I reviewed all post op management, arranged follow up and my emergency contact information. OK for discharge once fully recoved from the anesthesia. Admission HPI Per Admitting Provider Kiki Cuadra is a 46 year old male who presents to the ER with left sided facial swelling, pain, fever and chills. He reports symptoms started after left lower wisdom tooth extraction on April 20. He has had pain following this procedure without any explanation from his dentist to what was causing his pain. He was initially prescribed a course of penicillin on April 26 for possible infection. This was followed up by a root canal procedure on May 01 with a course of ciprofloxacin. After this procedure he started to have more pain and submandibular swelling with fever and chills. He was referred to another specialist and planned to going to a oromaxillofacial surgeon but has been unable to get an urgent appointment due to the holidays. In the ER CT confirmed the presence of a submandibular abscess. Dr Maradiaga has seen the patient and recommended IV antibiotics and steroids currently. Pending clinical course surgery to be decided. He was referred to medicine for admission and ongoing management of this submandibular abscess. The patient notes no recurrent infections. Discharge Data Consultations 05/09/21 14:51 Consult Oromaxillofacial Surgery Stat 05/09/21 17:44 ED Decision to Admit Stat Procedures Performed Operation Date: 05/11/21 09:15 Actual Procedures p Left facial Incision and Drainage(Left) - Jose Maradiaga DMD s Extraction #18,19(Left) - Jose Maradiaga DMD Hospital Course (1) Cellulitis and abscess of face: (2) Submandibular abscess: (3) Infection of tooth socket: Coding Level of Care Code None Diagnoses Cellulitis and abscess of face L03.211; L02.01 Submandibular abscess K12.2 Infection of tooth socket M27.3
--- NOTE | 2021-05-26 08:53 | Coding Query ---
CODING QUERY Hi, This patient had a wisdom tooth extracted by a dentist 1 month prior to his visit to the ER. I was consulted due to his pain, swelling and inability to open his mouth (trismus). He failed outpatient therapy as it was not adequate treatment. In my opinion the current situation was the result of a post procedurally infection and inadequate out patient treatment. Mr Cuadra required Hydration, IV antibiotics and drainage of the infection. As a result of the I and D and dental extractions it was determined that he developed osteomyelitis of the jaw bone. I will be following Mr. Cuadra until complete resolution of the current infection. To promote full compliance with coding requirements relating to patient care, provider participation is requested in all cases of tree climber uncertainty. Please assist us with the question(s) below: Coding Question(s): Patient admitted with cellulitis and abscess of face, submandibular abscess, and infected tooth socket. Acute osteomyelitis findings intraoperatively. 04/20 progress note documents s/p tooth extraction and root canal as an Outpatient. Seeking to clarify postprocedure infection . Please check below . Thank you. MARILYNN Ramírez [facility] Physician's Response(s): X__ Patient admitted with postprocedure complicated by infection Patient did not have a postprocedure complicated by infection Cannot clinically correlate if patient had a postprocedure complicated by infection Other: please document: Principal Diagnosis: "that condition established after study, to be chiefly responsible for occasioning the admission of the patient to the hospital for care." Co-Existing Principal Diagnosis: "when two or more diagnoses equally meet the criteria for principal diagnosis as determined by the circumstances of admission, diagnostic work up, and/or therapy provided, and the Alphabetic Index, Tabular List, or another coding guideline does not provide sequencing direction, any one of the diagnoses may be sequenced first." "When the physician has documented what appears to be a current diagnosis in the body of the record, but has not included the diagnosis in the final diagnostic statement, the physician should be asked whether the diagnosis should be added." (Source [facility]oding [facility] 2 QTR90. p3-4) MTDD
== END 2021-05-11 13:48 | disposition home or self-care (01) | DRG 857 ==
LOC: ED 11:34 → SUATTDRO 17:52 → EDINP 17:52 → 3E 05-10 17:43